=== PATIENT | female | born 1995 | race Two or more races ===

== ENCOUNTER 2017-03-02 14:22 | Emergency (ER) | payer OTHER ==
[~2017-03-02] VITALS: Ht 152.4 cm; Wt 75.3 kg
--- NOTE | 2017-03-02 14:22 | NUR ---
C/O UPPER ABDOMINAL PAIN AROUND 1PM TODAY, -N/V/D
--- NOTE | 2017-03-02 15:35 | NUR ---
HOT TAR ROOFER AT BEDSIDE
--- NOTE | 2017-03-02 15:41 | NUR ---
RELEASE OF INFORMATION SPECIALIST AT BEDSIDE
--- NOTE | 2017-03-02 15:41 | NUR ---
URINE SAMPLE COLLECTED SENT TO LAB
[2017-03-02 15:47] LABS: BASOPHILS # (AUTO) 0.1 /CMM (0.0-0.2); EOSINOPHILS # (AUTO) 0.1 /CMM (0.0-0.7); MONOCYTES # (AUTO) 0.3 /CMM (0.1-1.30); RDW COEFFICIENT OF VARIATION 12.7 (11.5-15.0)
[2017-03-02 15:49] LABS: EOSINOPHILS % (AUTO) 1.1 % (0.0-6.0); HEMATOCRIT 40 % (33-45); HEMOGLOBIN 13.3 g/dL (11.5-14.8); LYMPHOCYTES # (AUTO) 1.2 /CMM (0.8-4.8); LYMPHOCYTES % (AUTO) 16.3 % (20.0-44.0); MEAN CORPUSCULAR HEMOGLOBIN 29 PG (26.0-33.0); MEAN CORPUSCULAR HGB CONC 33 g/dl (31.0-36.0); MEAN CORPUSCULAR VOLUME 87 fL (82-100); MONOCYTES % (AUTO) 4.2 % (2.0-12.0); NEUTROPHILS # (AUTO) 5.6 /CMM (1.8-8.9); NEUTROPHILS % (AUTO) 77.4 % (43.0-81.0); PLATELET COUNT (AUTO) 284 /CMM (150-450); RED BLOOD CELL COUNT(AUTO) 4.59 MIL/uL (4.0-5.2); WHITE BLOOD COUNT (AUTO) 7.3 K/uL (4.3-11.0)
[2017-03-02 15:56] LABS: CALCIUM, SERUM 8.8 mg/dL (8.5-10.1); CREATININE 0.6 mg/dL (0.6-1.3); POTASSIUM 3.6 mmol/L (3.5-5.1)
[2017-03-02 16:07] LABS: BILIRUBIN,DIRECT 0.1 mg/dL (0.0-0.2); BILIRUBIN,TOTAL 0.4 mg/dL (0.2-1.0); TOTAL PROTEIN, SERUM 7.7 g/dL (6.4-8.2)
[2017-03-02 16:10] LABS: APPEARANCE,URINE Clear (CLEAR); BILIRUBIN,URINE Negative (NEGATIVE); BLOOD, URINE Large Ery/uL (NEGATIVE); COLOR,URINE Yellow (YELLOW); KETONES,URINE Trace (NEGATIVE); LEUKOCYTE ESTERASE ,URINE Negative (NEGATIVE); NITRITE, URINE Negative (NEGATIVE); PH,URINE 6.5 (5.0-8.0); PROTEIN,URINE Negative (NEGATIVE); UGLUCOSE Negative (NEGATIVE); UROBILINOGEN,URINE 0.2 EU/dL (0.2)
[2017-03-02 16:13] LABS: PREGNANCY TEST URINE QUAL NEGATIVE (NEGATIVE)
[2017-03-02 16:20] LABS: BACTERIA,URINE None seen /HPF (None Seen); RBC,URINE 80-100 /HPF (0-2); SQUAMOUS EPITHELIAL CELL,UR Few /HPF (None Seen); WBC,URINE 0-3 /HPF (0-3)
--- NOTE | 2017-03-02 17:02 | NUR ---
Patient discharged to home in stable condition. Written and verbal after care instructions given. Patient verbalizes understanding of instruction.
[2017-03-02 17:14] VITALS: BP 118/71
--- NOTE | 2017-03-02 17:14 | NUR ---
Patient discharged to home in stable condition. Written and verbal after care instructions given. Patient verbalizes understanding of instruction.
== END 2017-03-02 17:15 | disposition home or self-care (01) ==
LOC: EDBD 14:28 → ER 14:28
DX: K80.20 Calculus of gallbladder without cholecystitis without obstruction (principal); J45.909 Unspecified asthma, uncomplicated; Z88.1 Allergy status to other antibiotic agents
CPT/HCPCS: 36415; 76705-TC; 80048-TC; 80076-TC; 81000-TC; 83690-TC; 84703-TC; 85025-TC; A4606; Z7610

== ENCOUNTER 2017-03-02 18:58 | Emergency (ER) | payer OTHER ==
[~2017-03-02] VITALS: Ht 157.5 cm; Wt 54.4 kg
--- NOTE | 2017-03-02 20:25 | NUR ---
PT STATES SHE WAS HERE EARLIER TODAY AND DIAGNOSED WITH GALLSTONES AND THE PAIN IS BACK PT STATES SHE DID NOT FILL PRESCRIPTION. PT AOX3 RR EVEN AND UNLABORED. NO SOB NOTED. NAD NOTED. NO NVD AT THIS TIME. PT GOWNED WAITING FOR MD VAZQUEZ.
--- NOTE | 2017-03-02 20:26 | NUR ---
DR. AN AT BEDSIDE FOR EVAL.
--- NOTE | 2017-03-02 20:52 | NUR ---
URINE COLLECTED. CALLED LAB FOR [employer] OPERATOR.
--- NOTE | 2017-03-02 21:08 | NUR ---
PT TO RADIOLOGY FOR CT ABD/PELVIS
--- NOTE | 2017-03-02 21:16 | NUR ---
PT RETURNED FROM CT.
--- NOTE | 2017-03-02 21:51 | NUR ---
Patient discharged to home in stable condition. Written and verbal after care instructions given. Patient verbalizes understanding of instruction. ambulatory with a steady gait. instructed not to drive. pt verbalize understanding.
[2017-03-02 21:57] VITALS: BP 112/89
== END 2017-03-02 22:00 | disposition home or self-care (01) ==
LOC: ER 18:59
DX: N20.0 Calculus of kidney (principal); K80.20 Calculus of gallbladder without cholecystitis without obstruction; J45.909 Unspecified asthma, uncomplicated; Z88.1 Allergy status to other antibiotic agents
CPT/HCPCS: 84703-TC; A4606; Z7610